=== PATIENT | female | born 1985 | race Hispanic/Latino ===

== ENCOUNTER 2017-04-17 11:39 | Emergency (ER) | payer OTHER ==
[2017-04-17 11:39] VITALS: BMI 22.3
[2017-04-17] MEDS ORDERED: Sodium Chloride 0.9% 1,000 ML IV ONE ×2 (12:26→14:38)
[2017-04-17] MEDS ORDERED: DiphenhydrAMINE 50 mg/ml Inj IVP STA (12:27)
--- NOTE | 2017-04-17 12:33 | C.PDOC ---
History Of Present Illness 31 yr old female presents to the ER stating since morning she has been having episodes of anxiety with nausea and "gagging". Patient reports of similar symptoms 2 days earlier,w as seen at a different hospital and was given Zofran, Ativan and fluids which helped. Patient also reports she is and has not taken her Klonopin, last use was about 1 week ago. Denies SI, HI, trauma, fever, chills, dysuria, weakness or numbness. Time Seen by Provider: 04/17/17 11:52 Chief Complaint (Nursing): Anxiety History Per: Patient History/Exam Limitations: no limitations Onset/Duration Of Symptoms: Days Past Medical History Reviewed: Historical Data, Nursing Documentation, Vital Signs Vital Signs: Last Vital Signs Temp 97.8 F 04/17/17 17:00 Pulse 89 04/17/17 17:00 Resp 18 04/17/17 17:00 BP 122/83 04/17/17 17:00 Pulse Ox 99 04/17/17 18:56 - Medical History PMH: Anxiety, Depression, Hyperthyroidism (History.), Migraine - [facility] Procedures INJECT/INFUSE NEC (03/16/14) Family History: States: No Known Family Hx - Social History Hx Alcohol Use: No Hx Substance Use: No - Immunization History Hx Tetanus Toxoid Vaccination: Yes Hx Influenza Vaccination: No Hx Pneumococcal Vaccination: No Review Of Systems Except As Marked, All Systems Reviewed And Found Negative. Constitutional: Negative for: Fever, Chills Gastrointestinal: Positive for: Nausea, Other ("gagging") Genitourinary: Negative for: Dysuria Neurological: Negative for: Weakness, Numbness Physical Exam - Physical Exam Appears: Non-toxic, No Acute Distress Skin: Warm, Dry, No Rash Head: Atraumatic, Normacephalic Eye(s): bilateral: Normal Inspection, PERRL, EOMI Oral Mucosa: Moist Neck: Normal ROM, Supple Chest: Symmetrical, No Tenderness Cardiovascular: Rhythm Regular, No Friction Rub, No Murmur Respiratory: Normal Breath Sounds, No Rales, No Rhonchi, No Stridor, No Wheezing Gastrointestinal/Abdominal: Normal Exam, Soft, No Tenderness, No Guarding, No Rebound Extremity: Normal ROM, No Swelling Neurological/Psych: Oriented x3, Normal Speech, Normal Motor Gait: Steady ED Course And Treatment - Laboratory Results Result Diagrams: 04/17/17 12:54 04/17/17 12:54 O2 Sat by Pulse Oximetry: 99 (RA) Pulse Ox Interpretation: Normal Medical Decision Making Medical Decision Making: PLAN: * CBC * CMP * HCG * Urinalysis * Benadryl IVP * Reglan IVP * Sodium Chloride IV Patient on first re-exam, states that she still has nausea. Patient is requesting Ativan. PAtient was instructed that she cannot receive Ativan as she is currently . Patient reports that she ran out of Klonopin and is insisted on getting Ativan. Refusing potassium and other medications at this time. Patient is exhibiting drug seeking behavior. Disposition - Disposition Referrals: [facility] [Outside] Disposition: HOME/ ROUTINE Disposition Time: 17:03 Condition: GOOD Additional Instructions: Follow up with the medical doctor within 1-2 days. Return if worsened. Prescriptions: Ondansetron ODT [Zofran ODT] 1 odt PO BID PRN #10 odt PRN Reason: Nausea/Vomiting Instructions: Acute Nausea and Vomiting (ED) Forms: [facility] (Slovak) - Clinical Impression Clinical Impression: Vomiting - PA / CLUB CONCIERGE / Resident Statement MD/DO has reviewed & agrees with the documentation as recorded. - Scribe Statement The provider has reviewed the documentation as recorded by the Scribe Evelia Medina All medical record entries made by the Fishibe were at my direction and personally dictated by me. I have reviewed the chart and agree that the record accurately reflects my personal performance of the history, physical exam, medical decision making, and the department course for this patient. I have also personally directed, reviewed, and agree with the discharge instructions and disposition.
[2017-04-17] MEDS ORDERED: DiphenhydrAMINE 50 mg/ml Inj ONE (12:37)
[2017-04-17] MEDS ORDERED: Sodium Chloride 0.9% 1,000 ML ONE ×2 (12:37→14:44)
[2017-04-17 13:00] LABS: BASO % 0.3 % (0.0-2.0); HEMOGLOBIN 14.8 g/dL (11.0-16.0); LYMPH # 1.3 K/uL (1.0-4.3); LYMPH % 10.4 % (20.0-40.0); MEAN CELL VOLUME 87.6 fL (81.0-99.0); MEAN CORPUSCULAR HGB CONC 35.3 g/dL (33.0-37.0); MEAN PLATELET VOLUME 10.8 fL (7.2-11.7); MONO # 0.5 K/uL (0.0-0.8); NEUT # 10.5 K/uL (1.8-7.0); NEUT % 85.3 % (50.0-75.0); RBC 4.77 Mil/uL (3.80-5.20); RED CELL DISTRIBUTION WIDTH 13.1 % (11.5-14.5); WHITE BLOOD COUNT 12.3 K/uL (4.8-10.8)
[2017-04-17] MEDS ORDERED: Aluminum Hydroxide/Magnesium Hydroxide Susp (30 mL) PO STA (13:20)
[2017-04-17 13:26] LABS: ALB/GLOB RATIO 1.3 (1.0-2.1); ALT/SGPT 31 U/L (9-52); AST/SGOT 22 U/L (14-36); BLOOD UREA NITROGEN 10 mg/dL (7-17); CALCIUM 8.3 mg/dl (8.6-10.4); GFR AFRICAN-AMERICAN > 60; GFR NON-AFRICAN AMERICAN > 60
[2017-04-17] MEDS ORDERED: Aluminum Hydroxide/Magnesium Hydroxide Susp (30 mL) ONE (13:57)
[2017-04-17 15:35] LABS: HCG,QUALITATIVE URINE POSITIVE (NEGATIVE)
[2017-04-17 15:45] LABS: SQUAMOUS EPITHIAL 1 /hpf (0-5); URINE BACTERIA RARE (<OCC); URINE BILIRUBIN NEGATIVE (NEGATIVE); URINE BLOOD NEGATIVE (NEGATIVE); URINE CLARITY Clear (Clear); URINE COLOR Yellow (YELLOW); URINE GLUCOSE (UA) NORMAL (Normal); URINE LEUKOCYTE ESTERASE NEG Leu/uL (Negative); URINE NITRATE NEGATIVE (NEGATIVE); URINE PROTEIN 1+ mg/dL (NEGATIVE); URINE UROBILINOGEN NORMAL mg/dL (0.2-1.0)
[2017-04-17 15:58] LABS: BARBITURATES, UR NEGATIVE (NEGATIVE); BENZODIAZEPINES, UR NEGATIVE (NEGATIVE); OPIATES, UR NEGATIVE (NEGATIVE); PHENCYCLIDINE, UR NEGATIVE (NEGATIVE)
[2017-04-17 17:00] VITALS: BP 122/83; PULSE 89; RESP 18; TEMP 97.8
[2017-04-17 17:05] VITALS: O2SAT 99
== END 2017-04-17 17:22 | disposition home or self-care (01) ==
LOC: C.ER 11:39
DX: R11.10 Vomiting, unspecified (principal); F41.9 Anxiety disorder, unspecified
CPT/HCPCS: 36415; 80053; 81001; 84703; 85025; 87086; 96361; 96374; 96375; 96376; 99285; G0480; J1200; J2405; J2765; J7040

== ENCOUNTER 2018-01-22 17:30 | Emergency (ER) | payer OTHER ==
[2018-01-22 17:31] VITALS: BMI 22.3
[2018-01-22 18:04] VITALS: TEMP 98.6
[2018-01-22 18:45] LABS: HEMOGLOBIN 15.1 g/dL (11.0-16.0); MEAN CELL VOLUME 88.7 fL (81.0-99.0); MEAN CORPUSCULAR HEMOGLOBIN 30.1 pg (27.0-31.0); MEAN CORPUSCULAR HGB CONC 33.9 g/dL (33.0-37.0); RED CELL DISTRIBUTION WIDTH 12.9 % (11.5-14.5); WHITE BLOOD COUNT 8.3 K/uL (4.8-10.8)
[2018-01-22 19:02] LABS: HCG,QUALITATIVE URINE NEGATIVE (NEGATIVE)
[2018-01-22 19:16] LABS: BLOOD UREA NITROGEN 11 mg/dL (7-17); CALCIUM 9.2 mg/dl (8.6-10.4); GFR NON-AFRICAN AMERICAN > 60
[2018-01-22 19:23] LABS: ALB/GLOB RATIO 1.5 (1.0-2.1); ALBUMIN 4.7 g/dL (3.5-5.0); ALT/SGPT 9 U/L (9-52); AST/SGOT 19 U/L (14-36)
--- NOTE | 2018-01-22 19:26 | C.PDOC ---
History Of Present Illness 32 year old female patient presents to the ER with c/o x1 month lower abdominal pain. Patient reports she was dx with UTI x2 weeks ago from urgent care and received zithromax which gave relief but UTI came back. Urgent care gave macr obid which did not help. Patient is also taking imitrex. Patient notes she changed her diet which did not bring relief. Associated sx includes nausea and vomiting. Patient denies vaginal bleeding and discharge. Time Seen by Provider: 01/22/18 18:56 Chief Complaint (Nursing): Abdominal Pain History Per: Patient History/Exam Limitations: no limitations Onset/Duration Of Symptoms: Days (x1 month ) Current Symptoms Are (Timing): Still Present Location Of Pain/Discomfort: RLQ, LLQ Past Medical History Reviewed: Historical Data, Nursing Documentation, Vital Signs Vital Signs: Last Vital Signs Temp 98.6 F 01/22/18 17:56 Pulse 88 01/22/18 17:56 Resp 20 01/22/18 17:56 BP 117/84 01/22/18 17:56 Pulse Ox 98 01/22/18 17:56 - Medical History PMH: Anxiety, Depression, Hyperthyroidism (History.), Migraine - [facility] Procedures INJECT/INFUSE NEC (03/16/14) Family History: States: No Known Family Hx - Social History Hx Alcohol Use: No Hx Substance Use: Yes - Immunization History Hx Tetanus Toxoid Vaccination: No Hx Influenza Vaccination: No Hx Pneumococcal Vaccination: No Review Of Systems Except As Marked, All Systems Reviewed And Found Negative. Gastrointestinal: Positive for: Nausea, Vomiting, Abdominal Pain (b/l LQ with tenderness ), Other (+bowl sounds) Physical Exam - Physical Exam Appears: Non-toxic, No Acute Distress Skin: Normal Color, Warm, Dry Head: Atraumatic, Normacephalic Eye(s): bilateral: Normal Inspection, PERRL, EOMI Nose: Normal Oral Mucosa: Moist Chest: Symmetrical Cardiovascular: Rhythm Regular, No Murmur Respiratory: Normal Breath Sounds, No Rales, No Rhonchi, No Wheezing Gastrointestinal/Abdominal: Bowel Sounds, Soft, Tenderness (b/l LQ), No Distention, No Guarding, No Rebound Extremity: Normal ROM (x4) Extremity: Bilateral: Atraumatic, Normal Color And Temperature Neurological/Psych: Oriented x3, Normal Speech ED Course And Treatment - Laboratory Results Result Diagrams: 01/22/18 18:42 01/22/18 18:42 O2 Sat by Pulse Oximetry: 98 (RA) Pulse Ox Interpretation: Normal Medical Decision Making Medical Decision Making: Impression: abdominal pain Plans: -- CT abd & plevis -- Chem labs -- blood work -- Chlamydia/GC -- pepcid -- toradol -- zofran injection -- urine C&S -- POC test -- HCG -- UA Reassess: abd. pain - patient resting comfortably. Discussed ct results with patient and labs and will discharge home to follow up with pmd within 2 days. Disposition Counseled Patient/Family Regarding: Studies Performed, Diagnosis, Need For Followup, Rx Given - Disposition Referrals: Scott Espinoza MD [Staff Provider] - Disposition: HOME/ ROUTINE Disposition Time: 22:34 Condition: STABLE Additional Instructions: follow up with gi doctor within 2 days call to make an appointment take medications as prescribed return to ER if symptoms worsens or progress Prescriptions: Famotidine [Pepcid] 20 mg PO BID #20 tab Naproxen [Naprosyn] 500 mg PO BID PRN #16 tab PRN Reason: Pain, Moderate (4-7) Ondansetron ODT [Zofran ODT] 4 mg PO TID PRN #12 odt PRN Reason: Nausea/Vomiting Instructions: Acute Abdomen (Belly Pain), Adult (DC) Forms: [facility] (Japanese), General Discharge Instructions, Work Excuse - Clinical Impression Clinical Impression: Abdominal pain - Scribe Statement The provider has reviewed the documentation as recorded by the Fishibfelicity Douglas Do Provider Attestation: All medical record entries made by the Scribe were at my direction and personally dictated by me. I have reviewed the chart and agree that the record accurately reflects my personal performance of the history, physical exam, medical decision making, and the department course for this patient. I have also personally directed, reviewed, and agree with the discharge instructions and disposition.
[2018-01-22] MEDS ORDERED: Iohexol 350mg/ml 100 ML ONE (19:45)
[2018-01-22 22:02] LABS: SQUAMOUS EPITHIAL 5 /hpf (0-5); URINE BACTERIA OCC (<OCC); URINE BILIRUBIN NEGATIVE (NEGATIVE); URINE BLOOD NEGATIVE (NEGATIVE); URINE CALCIUM OXALATE CRYSTALS MANY /hpf (<OCC); URINE CLARITY Hazy (Clear); URINE COLOR Yellow (YELLOW); URINE GLUCOSE (UA) NORMAL (Normal); URINE LEUKOCYTE ESTERASE NEG Leu/uL (Negative); URINE PROTEIN NEGATIVE (NEGATIVE); URINE UROBILINOGEN NORMAL mg/dL (0.2-1.0)
[2018-01-22 22:47] VITALS: BP 131/67; PULSE 62; RESP 16; O2SAT 100
--- NOTE | 2018-01-23 08:16 | CT ---
Date of service: 01/22/2018 PROCEDURE: CT Abdomen and Pelvis with contrast HISTORY: abd. pain COMPARISON: None available. TECHNIQUE: Contrast dose: 100 cc Omnipaque 350 Radiation dose: Total exam DLP = 322.94 mGy-cm. This CT exam was performed using one or more of the following dose reduction techniques: Automated exposure control, adjustment of the mA and/or kV according to patient size, and/or use of iterative reconstruction technique. FINDINGS: LOWER THORAX: No visible consolidation, pleural effusion, or pneumothorax. LIVER: Unremarkable. GALLBLADDER AND BILE DUCTS: Unremarkable. PANCREAS: Unremarkable. SPLEEN: Unremarkable. ADRENALS: Unremarkable. KIDNEYS AND URETERS: The kidneys enhance symmetrically. No hydronephrosis or obstructing calculus identified. VASCULATURE: No aortic aneurysm. BOWEL: Stomach is nondistended. Lack of oral contrast limits evaluation for bowel pathology. Bowel loops appear within normal limits of caliber without evidence of obstruction. Diverticulosis involving the sigmoid colon. APPENDIX: The appendix appears within normal limits of caliber. No secondary signs of acute appendicitis. PERITONEUM: Small pelvic free fluid, likely physiologic. No definite free air. LYMPH NODES: No bulky adenopathy identified. BLADDER: Unremarkable. REPRODUCTIVE: The uterus is present. BONES: No acute osseous abnormality is detected. OTHER FINDINGS: None. IMPRESSION: Sigmoid diverticulosis. No significant associated inflammatory changes are seen. Correlate clinically. Additional findings as above. Preliminary impression was provided by [employer].
== END 2018-01-22 22:46 | disposition home or self-care (01) ==
LOC: C.ER 17:30
DX: R10.30 Lower abdominal pain, unspecified (principal)
CPT/HCPCS: 36415; 74177; 80053; 81001; 83690; 84703; 85027; 87086; 96374; 96375; 99284; J1885; J2405; Q9967

== ENCOUNTER 2018-01-23 07:42 | Emergency (ER) | payer OTHER ==
[2018-01-23 07:51] VITALS: BMI 24.0
[2018-01-23 07:52] VITALS: TEMP 98.7
[2018-01-23] MEDS ORDERED: Sodium Chloride 0.9% Inh Soln (3mL) UD INH ONE (08:41)
--- NOTE | 2018-01-23 08:45 | C.PDOC ---
History Of Present Illness 32 year old female with a history of anxiety and PTSD presents to the emergency department with complaints of feeling anxious. Patient was seen in the ED last night and discharged at 10PM. Patient states that she woke up two hours ago feeling anxious as well as experiencing chest pressure and shaking. Patient also reports feeling as if she's wheezing. She states that she used medicinal marijuana and was recently started on Prozac. She denies suicidal/homicidal ideation or auditory hallucinations. Time Seen by Provider: 01/23/18 08:13 Chief Complaint (Nursing): Anxiety History Per: Patient History/Exam Limitations: no limitations Onset/Duration Of Symptoms: Hrs Current Symptoms Are (Timing): Still Present Modifying Factor(s): None Associated Symptoms: Anxiety, Other (chest pressure). denies: Suicidal Thoughts, Suicidal Plan Past Medical History Reviewed: Historical Data, Nursing Documentation, Vital Signs Vital Signs: Last Vital Signs Temp 98.7 F 01/23/18 07:51 Pulse 95 H 01/23/18 07:51 Resp 22 01/23/18 07:51 BP 122/81 01/23/18 07:51 Pulse Ox 98 01/23/18 07:51 - Medical History PMH: Anxiety, Depression, Hyperthyroidism (History.), Migraine Denies: HIV, HTN, Chronic Kidney Disease, Seizures, Sexually Transmitted Disease Surgical History: No Surg Hx - [facility] Procedures INJECT/INFUSE NEC (03/16/14) Family History: States: No Known Family Hx - Social History Hx Alcohol Use: No Hx Substance Use: Yes - Immunization History Hx Tetanus Toxoid Vaccination: No Hx Influenza Vaccination: No Hx Pneumococcal Vaccination: No Review Of Systems Constitutional: Positive for: Other (shaking) Cardiovascular: Positive for: Other (chest pressure) Respiratory: Positive for: Wheezing Psych: Positive for: Anxiety. Negative for: Psychosis, Suicidal ideation Physical Exam - Physical Exam Appears: Non-toxic, In Acute Distress (anxious) Skin: Warm, Dry Head: Atraumatic, Normacephalic Eye(s): bilateral: Normal Inspection Oral Mucosa: Moist Neck: Normal, Supple Chest: Symmetrical Cardiovascular: Rhythm Regular, No Murmur Respiratory: Normal Breath Sounds, No Rales, No Rhonchi, No Wheezing Gastrointestinal/Abdominal: Normal Exam, Soft, No Tenderness, No Guarding, No Rebound Extremity: Normal ROM Neurological/Psych: Oriented x3, Normal Speech, Normal Cognition ED Course And Treatment O2 Sat by Pulse Oximetry: 98 (RA) Pulse Ox Interpretation: Normal Progress Note: Plan: EKG. Drug Screen. NaCl IV Fluids 650mg PO. Nebulizer Treatment Medical Decision Making Medical Decision Making: pt with anxiety, feels shaky with chest pressure. crisis called for consult. pt later stated to vomit;saline lock inserted, zofran and pepcid given. pt still vomiting. pt declines reglan. another dose of zofran ordered. crisis team trying to contact [facility], where pt is seen. 11:58 Patient noted to be putting finger in her mouth to induce vomiting. Patient was once again offered psych admission multiple times and declined. 1216 pt given im benadryl. now resting comfortably. pt earlier requested klonopin, explained we will not start her on it. will d/c with benadry, f/u [facility] Disposition Counseled Patient/Family Regarding: Diagnosis, Need For Followup, Rx Given - Disposition Disposition: HOME/ ROUTINE Disposition Time: 12:22 Condition: IMPROVED Additional Instructions: Please follow up in [facility] as soon as possible. Take one benadryl by mouth every 6 hours if needed. Your medicine sent to [facility]. 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 - Scribe Statement The provider has reviewed the documentation as recorded by the Scribe (Dallin Cloud) All medical record entries made by the Scribe were at my direction and personally dictated by me. I have reviewed the chart and agree that the record accurately reflects my personal performance of the history, physical exam, medical decision making, and the department course for this patient. I have also personally directed, reviewed, and agree with the discharge instructions and disposition.
[2018-01-23 09:52] LABS: BARBITURATES, UR NEGATIVE (NEGATIVE); BENZODIAZEPINES, UR NEGATIVE (NEGATIVE); OPIATES, UR NEGATIVE (NEGATIVE); PHENCYCLIDINE, UR NEGATIVE (NEGATIVE)
[2018-01-23] MEDS ORDERED: Aluminum Hydroxide/Magnesium Hydroxide Susp (30 mL) ONE (09:56)
[2018-01-23] MEDS ORDERED: Sodium Chloride 0.9% 1,000 ML IV ONE (10:08)
[2018-01-23] MEDS ORDERED: Sodium Chloride 0.9% 1,000 ML ONE (10:55)
[2018-01-23] MEDS ORDERED: DiphenhydrAMINE 50 mg/ml Inj IM STA (11:34)
[2018-01-23] MEDS ORDERED: DiphenhydrAMINE 50 mg/ml Inj ONE (11:43)
[2018-01-23 12:40] VITALS: BP 112/80; PULSE 82; RESP 18
[2018-01-25 12:22] VITALS: O2SAT 98
--- NOTE | 2018-01-25 21:37 | CARD ---
APPROVED REPORT Date of service: 01/23/2018 EKG Measurement Heart [id number] <Conclusion> Sinus rhythm with baseline artifact. Otherwise normal ECG
== END 2018-01-23 13:11 | disposition home or self-care (01) ==
LOC: C.ER 07:42
DX: F41.9 Anxiety disorder, unspecified (principal)
CPT/HCPCS: 80324; 80345; 80346; 80349; 80353; 80358; 80361; 83992; 93005; 96361; 96372; 96374; 96375; 96376; 99285; J1200; J2405; J7030

== ENCOUNTER 2018-01-25 13:37 | Inpatient (IN) | payer OTHER ==
[2018-01-25 13:37] VITALS: BMI 24.0
[2018-01-25] MEDS ORDERED: Sodium Chloride 0.9% 1,000 ML IV ONE (13:56)
[2018-01-25] MEDS ORDERED: Sodium Chloride 0.9% 1,000 ML ONE (14:04)
[2018-01-25 14:07] LABS: BASO # 0.1 K/uL (0.0-0.2); BASO % 0.7 % (0.0-2.0); EOS % 0.2 % (0.0-4.0); HEMOGLOBIN 15.5 g/dL (11.0-16.0); LYMPH # 1.9 K/uL (1.0-4.3); LYMPH % 16.8 % (20.0-40.0); MEAN CELL VOLUME 87.7 fL (81.0-99.0); MEAN CORPUSCULAR HGB CONC 34.2 g/dL (33.0-37.0); MEAN PLATELET VOLUME 11.2 fL (7.2-11.7); MONO # 0.8 K/uL (0.0-0.8); MONO % 6.9 % (0.0-10.0); NEUT # 8.3 K/uL (1.8-7.0); NEUT % 75.4 % (50.0-75.0); NRBC % 0.1 % (0.0-2.0); RBC 5.17 Mil/uL (3.80-5.20); RED CELL DISTRIBUTION WIDTH 12.9 % (11.5-14.5); WHITE BLOOD COUNT 11.1 K/uL (4.8-10.8)
[2018-01-25 14:21] LABS: ALB/GLOB RATIO 1.6 (1.0-2.1); ALBUMIN 4.9 g/dL (3.5-5.0); ALT/SGPT 20 U/L (9-52); AST/SGOT 23 U/L (14-36); BLOOD UREA NITROGEN 14 mg/dL (7-17); CALCIUM 9.9 mg/dl (8.6-10.4); GFR NON-AFRICAN AMERICAN > 60
[2018-01-25 15:27] LABS: SQUAMOUS EPITHIAL 7 /hpf (0-5); URINE BACTERIA FEW (<OCC); URINE BILIRUBIN NEGATIVE (NEGATIVE); URINE BLOOD NEGATIVE (NEGATIVE); URINE CLARITY Hazy (Clear); URINE COLOR Yellow (YELLOW); URINE GLUCOSE (UA) NORMAL (Normal); URINE LEUKOCYTE ESTERASE NEG Leu/uL (Negative); URINE PROTEIN NEGATIVE (NEGATIVE); URINE UROBILINOGEN NORMAL mg/dL (0.2-1.0)
[2018-01-25 15:46] LABS: BARBITURATES, UR NEGATIVE (NEGATIVE); BENZODIAZEPINES, UR NEGATIVE (NEGATIVE); OPIATES, UR NEGATIVE (NEGATIVE); PHENCYCLIDINE, UR NEGATIVE (NEGATIVE)
--- NOTE | 2018-01-25 17:49 | C.PDOC ---
History Of Present Illness 32-year-old female, presents to the emergency department, sent from [facility] for anxiety. Upon arrival, pt hyperventilating and vomiting. States she took medication as per [facility] recommendation. Denies SI/HI, hallucinations. No other complaints at this time. Time Seen by Provider: 01/25/18 14:00 Chief Complaint (Nursing): Psychiatric Evaluation History Per: Patient History/Exam Limitations: no limitations Current Symptoms Are (Timing): Still Present Past Medical History Reviewed: Historical Data, Nursing Documentation, Vital Signs Vital Signs: Last Vital Signs Temp 97.9 F 01/25/18 13:40 Pulse 97 H 01/25/18 13:40 Resp 18 01/25/18 13:40 BP 127/84 01/25/18 13:40 Pulse Ox 100 01/25/18 13:40 - Medical History PMH: Anxiety, Depression, Hyperthyroidism (History.), Migraine - [facility] Procedures INJECT/INFUSE NEC (03/16/14) Family History: States: No Known Family Hx - Social History Hx Alcohol Use: No Hx Substance Use: Yes - Immunization History Hx Tetanus Toxoid Vaccination: No Hx Influenza Vaccination: No Hx Pneumococcal Vaccination: No Review Of Systems Constitutional: Negative for: Fever Cardiovascular: Negative for: Chest Pain Gastrointestinal: Positive for: Vomiting Psych: Positive for: Anxiety. Negative for: Depression, Psychosis, Suicidal ideation, Withdrawal Physical Exam - Physical Exam Appears: Non-toxic, No Acute Distress, Other (wretching, anxious) Skin: Warm, Dry, No Rash Head: Atraumatic, Normacephalic Eye(s): bilateral: Normal Inspection, PERRL, EOMI Nose: Normal Oral Mucosa: Moist Lips: Normal Appearing Neck: Normal ROM Cardiovascular: Rhythm Regular, No Murmur Respiratory: Normal Breath Sounds, No Accessory Muscle Use Gastrointestinal/Abdominal: Soft, No Tenderness Extremity: Normal ROM, No Deformity Neurological/Psych: Oriented x3, Normal Speech ED Course And Treatment - Laboratory Results Result Diagrams: 01/25/18 14:02 01/25/18 14:02 O2 Sat by Pulse Oximetry: 100 Pulse Ox Interpretation: Normal (RA) Disposition - Disposition Disposition: HOSPITALIZED Disposition Time: 18:00 Condition: STABLE - Clinical Impression Clinical Impression: Anxiety - Scribe Statement The provider has reviewed the documentation as recorded by the Scribe (James Rivers) All medical record entries made by the Scribe were at my direction and personally dictated by me. I have reviewed the chart and agree that the record accurately reflects my personal performance of the history, physical exam, medical decision making, and the department course for this patient. I have also personally directed, reviewed, and agree with the discharge instructions and disposition.
--- NOTE | 2018-01-25 19:39 | PCM.BM ---
<Lina Espino - Last Filed: 01/25/18 19:34> Treatment Plan Problems - Problems identified on initial assessmt Anxiety Date Initiated: 01/25/18 Time Initiated: 19:22 Assessment reference: NA Status: Active Insomnia Time Initiated: 19:39 Assessment reference: NA Status: Active Treatment assets and liabiliti Patient Assests: cooperative, insightful, ADL independent, good support system, negotiates basic needs Patient Liabilities: physical pain, other (insomnia) - Milieu Protocol Maintain good personal hygiene: daily Encourage regular showers, daily Remind patient to perform daily oral care, daily Assist patient to perform ADL's Conduct patient checks and document Observation sheet: Q15 minutes Maintain personal safety: every shift Educate patient to report safety concerns to staff, every shift Monitor environment for contraband/sharps Medication safety: Monitor for expected outcome, potential side effects: every shift, Assess barriers to learning: every shift, Assess readiness for medication education: every shift <Melia Swanson - Last Filed: 01/27/18 11:12> - Diagnosis (1) Bipolar disorder Status: Acute Interventions: 01/27/18 11:12 * Assess/adjust medications daily and /or as needed * See patient on an individual basis 7x/week to assess level of manic behaviors and stability * Discuss risks, benefits, side effects and alternatives of medications * <Angely Meredith - Last Filed: 01/27/18 16:28> Family Contact Family involvement: Patient does not wish Family/SO involvement Family contact: Patient declines to allow family contact at present - Goals for Treatment Patient goals for treatment: "I want to go to [facility] for treatment." Discharge/Continuing Care - Education Needs Education Needs: Patient Medication, Patient Diagnosis/Disease Process, Patient Coping Skills, Patient Placement options, Patient Community resources - Discharge Discharge Criteria: Free of Suicidal thoughts, Normal sleep pattern, Ability to care for self, Reduction of target symptoms Discharge to:: Home, With Family - Treatment Team Participation Discussed with Family/SO: No Was Patient/Family/SO present at Treatment Team Meeting: Yes
[2018-01-26 06:09] VITALS: RESP 18; O2SAT 99
--- NOTE | 2018-01-26 10:27 | PCM.PSYCH ---
Initial Psychiatric Evaluation - Initial Psychiatric Evaluation Type of Admission: Voluntary Legal Status: Capacity Chief Complaint (in patient's own words): "I feel depressed and anxious" History of Present Illness and Precipitating Events: Patient is a 32-year-old female, single with no children. 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 Patient is here for depression and anxiety. Patient states that she has depression and anxiety on and off for about 10 years, but she feels like "everything just built up in a week". She states that she cannot cope with it anymore. Patient reports that her depression and anxiety started to become an issue in 2002, and now, they come out as physical symptoms. She has abdominal cramps, tremors, vomiting, and throat pain due to retching when she feels anxious. Patient reports that her anxiety is the worst in the mornings when she wakes up. She feels nauseous and short of breath momentarily when she wakes up in the morning. She calms herself down throughout the day and feels better. Patient states that she can still have fun and enjoy her life but she feels low in energy. Her appetite is not well due to her chronic stomach pain and vomiting episodes. Patient denies any past or present suicidal or homicidal ideation. She also denies having any visual or auditory hallucinations. Patient describes that when she feels anxious, she has uncontrolled thoughts, increased sensation and everything seems overwhelming. Heavy breathing starts first. Then, she feels the shaking and nausea. Patient reports that her anxiety and depression got worse after the she had in April,. She decided to get an due to her financial reasons that she and her boyfriend would not take care of it. She states that she feels guilty about her decision now. Patient has been getting a psychiatric therapy and treatment in [facility] by weekly appointments since last year. She most recently saw her therapist last Thursday. Patient has been hospitalized in psych unit a couple of times before. Patient denies use of any drug or alcohol except the medical marijuana that she smokes. She reports that she has a card for medical marijuana for her migraine but she states that she has been using it since college. Patient tried ecstasy about 7x in her 20s but she never used it again. She smokes ppd. Psych hx: Depression, Anxiety Med hx: Asthma, migraine Family hx; Mother has bipolar disorder, maternal relatives have psychiatric problems, her maternal cousins killed themselves, father has alcohol problem. Current Medications: Active Medications Generic Name Dose Route Start Last Admin Trade Name [place] PRN Reason Stop Dose Admin Influenza Virus Vaccine 60 mcg 01/27/18 10:00 Fluzone Quad [id number] IM 01/27/18 10:01 .ONCE ONE Pneumococcal Polyvalent Vaccine 0.5 ml 01/27/18 10:00 Pneumovax 23 Vaccine IM 01/27/18 10:01 .ONCE ONE Past Psychiatric History - Past Psychiatric History Previous Treatment History: Inpatient Pertinent Medical Hx (Current Medical&Sleep Prob, Allergies): Allergies Allergy/AdvReac Type Severity Reaction Status Date / Time amoxicillin Allergy RASH Verified 04/19/17 13:44 Penicillins Allergy RASH Verified 01/23/18 07:48 Famotidine [Pepcid] 20 mg PO BID #20 tab 01/22/18 Naproxen [Naprosyn] 500 mg PO BID PRN #16 tab 01/22/18 DiphenhydrAMINE [Benadryl] 25 mg PO Q6 PRN #20 cap 01/23/18 FLUoxetine [Fluoxetine HCl] 20 mg PO DAILY 01/23/18 Review of Systems - Review of Systems All systems: reviewed and no additional remarkable complaints except - Psychiatric Psychiatric: Anxiety, Hopelessness, Irritability Mental Status Examination - Personal Presentation Personal Presentation: Looks stated age - Affect Affect: Constricted, Depressed - Motor Activity Motor Activity: Calm - Reliability in Providing Information Reliability in Providing Information: Fair - Speech Speech: Organized - Mood Mood: Depressed, Anxious - Formal Thought Process Formal Thought Process: Flight of ideas - Obsessions/Compulsions Obsessions: No Compulsions: No - Cognitive Functions Orientation: Person, Place, Situation, Time Sensorium: Alert Attention/Concentration: Attentive Abstract Thinking: [place] Estimate of Intelligence: Below average Judgement: Imparied, as evidence by: Poor judgement, Imparied, as evidence by: Lack of insight into illness - Risk Risk: Diminished functioning - Strength & Assets Inventory Strength & Assets Inventory: Family support - Limitations Limitations: Living alone DSM 5 DX - DSM 5 DSM 5 Diagnosis: Bipolar disorder mixed severe without psychotic features Cannabis use disorder severe - Recommended/Plan of Treatment Treatment Recommendations and Plan of Treatment: Bipolar disorder mixed severe without psychotic features Cannabis use disorder severe -CBT -Psychotherapy -Supportive therapy, group therapy, individual therapy -Atarax 25 mg PO Q6 prn -Neurontin 300 mg po bid -[place] 300 gm PO BID -Trazodone 50 mg PO QHS prn - Smoking Cessation Smoking Cessation Initiated: No
[2018-01-27] MEDS ORDERED: Pneumococcal 23-Valent Vaccine IM ONE (10:00)
[2018-01-27] MEDS ORDERED: Influenza Vaccine 60 MCG/0.5 ML SYR (3 yr & up) IM ONE (10:00)
--- NOTE | 2018-01-27 11:13 | PCM.PYCHPN ---
Psychiatric Progress Note - Psychiatric Progress Note Patient seen today, length of contact: 15 min Patient Chief Complaint: "I feel depressed and anxious" Problems Identified/Issues Discussed: Patient seen and evaluated, chart reviewed and discussed with the nurse. Patient reports some improvement in the depressed mood and some improvement in the feelings of hopelessness and helplessness. As per the staff patient remained isolated and withdrawn. Patient also reports withdrawal symptoms including cramps, nausea, anxiety, and headaches. He is taking the medications and denies any side effects. Symptoms are improving and he needs more time for stabilization Supportive therapy and psychoeducation were given. Medication Change: Yes Medical Record Reviewed: Yes Mental Status Examination - Cognitive Function Orientation: Person, Place, Situation, Time Memory: Intact Attention: WNL Concentration: Poor Association: WNL Fund of Knowledge: Poor - Mood Mood: Depressed, Anxious - Affect Affect: Constricted, Depressed - Speech Speech: Soft - Formal Thought Process Formal Thought Process: Flight of ideas - Suicidal Ideation Suicidal Ideation: No - Homicidal Ideation Homicidal Ideation: No Goal/Treatment Plan - Goal/Treatment Plan Need for Continued Stay: Severe depression anxiety, Severe functional impairment Progress Toward Problem(s) and Goals/Treatment Plan: Bipolar disorder mixed severe without psychotic features Cannabis use disorder severe -CBT -Psychotherapy -Supportive therapy, group therapy, individual therapy -Atarax 25 mg PO Q6 prn -dc Neurontin 300 mg po bid -[place] 300 gm PO BID -Trazodone 50 mg PO QHS prn - Smoking Cessation Smoking Cessation Initiated: No
[2018-01-28 06:21] VITALS: TEMP 98.1
[2018-01-28 08:54] VITALS: BP 108/79; PULSE 89
--- NOTE | 2018-01-28 09:50 | PCM.PYCHDC ---
Mental Status Examination - Mental Status Examination Orientation: Person, Place, Situation, Time Memory: Intact Mood: Anxious Affect: Constricted Speech: Appropriate Attention: WNL Concentration: WNL Association: WNL Fund of Knowledge: WNL Formal Thought Process: No Impairment Suicidal Ideation: No Current Homicidal Ideation?: No Discharge Summary - Discharge Note Reason for Hospitalization: Feeling very depressed Consultations:: List each consultation separately and include: 1. Reason for request. 2. Findings. 3. Follow-up Summary of Hospital Course include:: 1. Description of specific treatment plan utilized for patients during their course of treatmen. 2. Summarize the time- course for resolution of acute symptoms and/or regressed behaviors. 3. Describe issues identified and worked on during hospitalization. 4. Describe medication utilized. 5. Describe medical problems identified and treated. 6. Reassessment of suicide risk Summary of Hospital Course: The pt was admitted and started on treatment with psychotherapy, support, psychoeducation and medications. MS and CBT used. The pt attended groups and activities, as well as milieu therapy. All the risks and benefits of medications are discussed and the patient understood and agreed. The pt improved with the treatments provided. After care discussed with the patient. She will go to [facility] - Final Diagnosis (DSM 5) Condition upon Discharge: STABLE DSM 5: Bipolar disorder mixed severe without psychotic features Cannabis use disorder severe Disposition: HOME/ ROUTINE Follow-up Treatment Plan: Continue below medications after discharge. Follow after care plan as discussed. Use relapse prevention skills Return to ER or call 911 if suicidal, homicidal or symptoms relapse. Stay away from stress, alcohol and drugs. See primary doctor regularly and get labs. Prescriptions/Medication Reconciliation: Gabapentin [Neurontin] 300 mg PO TID #90 cap Panacea Carbonate [Panacea Carbonate 300MG] 300 mg PO TID #90 cap
== END 2018-01-28 11:35 | disposition home or self-care (01) | DRG 753 ==
LOC: C.ER 13:37 → C.5E 18:38
PROC: GZHZZZZ Group Psychotherapy (ICD-10-PCS; principal; 2018-01-25)
PROC: GZ56ZZZ Individual Psychotherapy, Supportive (ICD-10-PCS; 2018-01-25)
DX: F31.63 Bipolar disorder, current episode mixed, severe, without psychotic features (principal); F41.9 Anxiety disorder, unspecified; F17.210 Nicotine dependence, cigarettes, uncomplicated; G43.909 Migraine, unspecified, not intractable, without status migrainosus; J45.909 Unspecified asthma, uncomplicated; F12.10 Cannabis abuse, uncomplicated

== ENCOUNTER 2018-01-31 14:07 | Emergency (ER) | payer OTHER ==
[2018-01-31 14:07] VITALS: BMI 24.0
[2018-01-31 14:29] VITALS: BP 114/78; PULSE 89; RESP 18; TEMP 99; O2SAT 99
--- NOTE | 2018-01-31 15:33 | C.PDOC ---
History Of Present Illness 32 y/o female, with Hx of anxiety and newly diagnosed bipolar disorder, started on lithium 4 days ago, taking 300 TID. Reports she feels her psych condition has been better than the previous years. States she took a mineral salt bath yesterday and started feeling a little shaky and generalized weakness afterwards. Patient talked to Dr. Hardin (psychiatrist) who suggested to get blood levels for lithium tested. No psych issues reported today. Time Seen by Provider: 01/31/18 14:32 Chief Complaint (Nursing): Abnormal Labs History Per: Patient History/Exam Limitations: no limitations Onset/Duration Of Symptoms: Days Current Symptoms Are (Timing): Still Present Past Medical History Reviewed: Historical Data, Nursing Documentation, Vital Signs Vital Signs: Last Vital Signs Temp 99 F 01/31/18 14:23 Pulse 89 01/31/18 14:23 Resp 18 01/31/18 14:23 BP 114/78 01/31/18 14:23 Pulse Ox 99 01/31/18 14:23 - Medical History PMH: Anxiety, Depression, Diverticulitis (pt reports mild), Hyperthyroidism (History.), Migraine (pt takes medicinal marijuana) Denies: Diabetes, Hepatitis, HIV, HTN, Chronic Kidney Disease, Seizures, Sexually Transmitted Disease - [facility] Procedures GROUP PSYCHOTHERAPY (01/25/18) INDIVIDUAL PSYCHOTHERAPY, SUPPORTIVE (01/25/18) INJECT/INFUSE NEC (03/16/14) Family History: States: No Known Family Hx - Social History Hx Alcohol Use: No Hx Substance Use: Yes - Immunization History Hx Tetanus Toxoid Vaccination: No Hx Influenza Vaccination: No Hx Pneumococcal Vaccination: No Review Of Systems Constitutional: Negative for: Fever, Chills Cardiovascular: Negative for: Chest Pain Respiratory: Negative for: Shortness of Breath Gastrointestinal: Negative for: Vomiting Skin: Negative for: Rash Neurological: Positive for: Weakness. Negative for: Numbness Physical Exam - Physical Exam Appears: Non-toxic, No Acute Distress Skin: Warm, Dry, No Rash Head: Atraumatic, Normacephalic Eye(s): bilateral: Normal Inspection Oral Mucosa: Moist Cardiovascular: Rhythm Regular, No Murmur Respiratory: Normal Breath Sounds, No Rales, No Rhonchi, No Wheezing Gastrointestinal/Abdominal: Soft, No Tenderness Extremity: Other (Mild tremor to hands) Neurological/Psych: Oriented x3, Normal Speech, Normal Motor, Normal Sensation, Other (no focal deficits) Gait: Steady ED Course And Treatment O2 Sat by Pulse Oximetry: 99 (RA) Pulse Ox Interpretation: Normal Medical Decision Making Medical Decision Making: Plan: --Labs pt with lithium level 0.5, no intervention or change in dose needed. will d/c home withoutpt f/u on wed as scheduled. Disposition Counseled Patient/Family Regarding: Studies Performed, Diagnosis, Need For Followup - Disposition Referrals: [facility] [Outside] Disposition: HOME/ ROUTINE Disposition Time: 15:52 Condition: GOOD Additional Instructions: Follow up in [facility] on Thu as scheduled. Continue taking lithium and other prescribed medications. Forms: [employer] (Telugu), General Discharge Instructions - Clinical Impression Clinical Impression: Fonda use - PA / CATTLE STICKER / Resident Statement MD/DO has reviewed & agrees with the documentation as recorded. - Scribe Statement The provider has reviewed the documentation as recorded by the Scribe Destiny Moser All medical record entries made by the Scribe were at my direction and pe rsonally dictated by me. I have reviewed the chart and agree that the record accurately reflects my personal performance of the history, physical exam, medical decision making, and the department course for this patient. I have also personally directed, reviewed, and agree with the discharge instructions and disposition.
== END 2018-01-31 16:02 | disposition home or self-care (01) ==
LOC: C.ER 14:07
DX: F19.90 Other psychoactive substance use, unspecified, uncomplicated (principal); F41.9 Anxiety disorder, unspecified; F31.9 Bipolar disorder, unspecified